=== PATIENT | female | born 1995 ===

== ENCOUNTER 2024-10-17 08:55 | Outpatient (CLI) | payer BC ==
[2024-10-17] VITALS (23 sets, daily range): BP systolic 93–117; BP diastolic 52–84; PULSE 75–118
== END 2024-10-17 23:59 | disposition home or self-care (01) ==
LOC: CARD DIAG 08:55
PROVIDERS: ATTEND Internal Medicine Interventional Cardiology
DX: R55 Syncope and collapse (principal)
CPT/HCPCS: 93660